=== PATIENT | female | born 1950 | race Caucasian/White ===

== ENCOUNTER 2019-12-24 19:31 | Inpatient (IN) | payer MEDICARE, BC ==
[~2019-12-24] VITALS: Ht 172.7 cm; Wt 125.4 kg
--- NOTE | 2019-12-24 19:15 | NUR ---
RECEIVED PATIENT IN BED, RECEIVED ENDORSEMENT FROM AM NURSE FOR ADMISSION OF PATIENT. PATIENT IN BED, ALERT AND VERBALLY RESPONSIVE. ON ROOM AIR. RESPIRATIONS EVEN AND UNLABORED. PATIENT WITH BILATERAL UPPER EXTREMITIES WRAPPED WITH MAX WRAP. PATIENT UNABLE TO MOVE BOTH ARMS BY SELF. WITH PAIN UPON MOVEMENT, BUT COMFORTABLE AT REST. ORIENTED PATIENT TO ROOM, BED, BED CONTROLS, AND HOSPITAL PROTOCOLS.
[~2019-12-24 19:31] MED LIST: ATOR10TA PO
[2019-12-24] MEDS ORDERED: Z GUARD REMEDY PASTE 57 GM TUBE TOP PRN (19:45)
[2019-12-24] MEDS ORDERED: ANAS1TAB50 PO (19:50)
[2019-12-24] MEDS ORDERED: ACET-2154 PO (19:50)
[2019-12-24] MEDS ORDERED: MAGN30OR PO (20:02)
[2019-12-24] MEDS ORDERED: HYDR1SYR4 IJ (20:02)
[2019-12-24] MEDS ORDERED: MAGN400O6 PO (20:02)
[2019-12-24] MEDS ORDERED: RIVA20TA PO (20:02)
[2019-12-24] MEDS ORDERED: HYDR-4384 PO ×2 (20:02)
[2019-12-24] MEDS ORDERED: ZOLP5TAB8 PO (20:02)
[2019-12-24] MEDS ORDERED: ZOLPIDEM 5 MG TABLET PO PRN (21:00)
[2019-12-24] MEDS ORDERED: MAG HYDROX/AL HYDROX/SIMETH 30 ML LIQUID UDC PO PRN (21:45)
--- NOTE | 2019-12-24 22:00 | NUR ---
DR MCARTHUR AND DR FELIPE NOTIFIED OF PATIENT'S ADMISSION. MEDICATION RECONCILIATION BY DR FELIPE
[2019-12-24 22:03] VITALS: BP 133/50
[2019-12-24] MEDS: HYDROCODONE/APAP 5-325MG TABLET PO PRN (22:58)
--- NOTE | 2019-12-24 23:00 | NUR ---
BODY CHECK DONE. CHANGED DRESSING FOR LEFT HIP SURGICAL SITE. NOTED WITH SCANT SEROSANGUINEOUS DRAINAGE. LEFT KNEE SURGICAL SITE WITH NO DRAINAGE. LEFT KNEE AND LEFT HIP SURGICAL SITES WITH COLTEN. PROVIDED PAD CALL BUTTON FOR PATIENT. Addendum: 12/25/19 at 0737 by MERLE MOE RN BODY CHECK DONE. CHANGED DRESSING FOR LEFT HIP SURGICAL SITE. NOTED WITH SCANT SEROSANGUINEOUS DRAINAGE. LEFT KNEE SURGICAL SITE WITH NO DRAINAGE. LEFT KNEE AND LEFT HIP SURGICAL SITES WITH COLTEN. UNABLE TO ASSESS BACK AND BUTTOCKS. PATIENT UNABLE TO TURN DUE TO BILATERAL ELBOW FRACTURE. PROVIDED PAD CALL BUTTON FOR PATIENT.
--- NOTE | 2019-12-25 04:45 | NUR ---
PATIENT IN BED, ASLEEP AT THIS TIME. EASILY AROUSED OR AWAKENED WITH CALLING OF NAME. PATIENT COMFORTABLE AT THIS TIME. WILL CONTINUE TO MONITOR PATIENT.
[2019-12-25 04:50] VITALS: BP 143/59
[2019-12-25 07:33] VITALS: BP 132/61
[2019-12-25 08:00] VITALS: BP 144/88
[2019-12-25] MEDS: ANASTROZOLE 1 MG TABLET PO SCH (08:49)
[2019-12-25 17:00] VITALS: BP 146/53
[2019-12-25] MEDS: ACETAMINOPHEN 325 MG TABLET PO PRN (17:13)
[2019-12-25] MEDS: RIVAROXABAN 10 MG TABLET PO SCH (17:15)
--- NOTE | 2019-12-25 18:16 | NUR ---
Pt received, assessed, no acute distress, pain , or SOB. VSS. Pt assisted to reposition both arms for comfort, wrapped with osito bandages intact. Pt compliant with routine medications and therapies as offered. Pt able to make needs known. Pt assisted to edge of bed, ambulate to the bathroom twice for voiding, and returned safely to bed. All comfort and safety needs implemented. Call light placed within reach. Will continue to monitor and endorse to juke box mechanic.
--- NOTE | 2019-12-25 20:00 | NUR ---
AWAKE,ALERTX3 WANTED BEDPAN,BILATERAL ARMS WITH MAX BANDAGE, FINGERS SLIGHTLY EDEMATOUS, SAFETY ASSOCIATE FED PATIENT HER DINNER.SLEP AT SHORT INTERVALS.
[2019-12-25] MEDS: HYDROCODONE/APAP 5-325MG TABLET PO PRN (23:39)
--- NOTE | 2019-12-25 23:55 | NUR ---
MEDICATED FOR BILATERAL ELBOW PAIN,NORCO 5MG GIVEN, MADE COMFORTABLE, RESTING COMFORTLY.
--- NOTE | 2019-12-26 05:50 | NUR ---
SLEPT AT LONG INTERVALS.CONDITION UNCHANGED
[2019-12-26 06:25] LABS: BASOPHILS % (AUTO) 0.6 % (0.0-2.0); EOSINOPHILS # (AUTO) 0.3 K/uL (0.0-0.7); EOSINOPHILS % (AUTO) 4.8 % (0.0-7.0); HEMATOCRIT 35.6 % (31.2-41.9); HEMOGLOBIN 11.8 g/dL (10.9-14.3); LYMPHOCYTES # (AUTO) 2.2 K/uL (20.0-40.0); LYMPHOCYTES % (AUTO) 36.2 % (20.5-51.5); MEAN CORPUSCULAR HEMOGLOBIN 29.4 uug (24.7-32.8); MEAN CORPUSCULAR HGB CONC 33 g/dL (32.3-35.6); MEAN CORPUSCULAR VOLUME 88.3 fL (75.5-95.3); MONOCYTES # (AUTO) 0.6 K/uL (2.0-10.0); MONOCYTES % (AUTO) 9.7 % (0.0-11.0); NEUTROPHILS # (AUTO) 2.9 K/uL (1.8-8.9); NEUTROPHILS % (AUTO) 48.7 % (38.5-71.5); PLATELET COUNT (AUTO) 207 K/uL (179-408); RED BLOOD CELL COUNT(AUTO) 4.03 MIL/uL (3.63-4.92)
[2019-12-26 06:37] LABS: CREATININE 0.8 mg/dL (0.6-1.3); MAGNESIUM 2.1 mg/dL (1.8-2.4); PHOSPHOROUS 3.9 mg/dL (2.5-4.9); POTASSIUM 3.8 mmol/L (3.5-5.1)
[2019-12-26 07:46] VITALS: BP 161/69
[2019-12-26] MEDS: ANASTROZOLE 1 MG TABLET PO SCH (09:33)
[2019-12-26] MEDS: HYDROCODONE/APAP 5-325MG TABLET PO PRN ×2 (12:54→17:46)
--- NOTE | 2019-12-26 13:11 | NUR ---
Fence Installer Helper Note: Pt states that she does not need any referrals but the SW provided patient with the following caregiving resources: [facility]; ([phone]), [facility]; ([phone]), [facility]; ([phone]) just in case she will need them. hops farmworker will continue to remain available to patient and provide ongoing supportive counseling and assess for any psychosocial needs. hops farmworker will encourage patient to comply with ARU goals of care.
--- NOTE | 2019-12-26 13:11 | NUR ---
Person to Notify Contact: SW called the pts friend listed on the facesheet, Angella ([phone] and [phone]), and was unable to make contact as the numbers were not accurate.
[2019-12-26 15:21] VITALS: BP 151/77
[2019-12-26] MEDS: ACETAMINOPHEN 325 MG TABLET PO PRN (15:50)
[2019-12-26] MEDS: RIVAROXABAN 10 MG TABLET PO SCH (17:48)
--- NOTE | 2019-12-26 19:21 | NUR ---
RN NOTES Patient resting in bed. Reports pain medication effective. Is comfortable with no immediate needs at this time. Ensured call light in position for patient to press if needed. Telephone within ear shot, however will need assistance to answer. Patient watching TV at this time. Per patient, would like to have a shower and have hair washed. Sp w/ charge nurse as patient states was told by PT she would not be showered on the floor. Will advise oncoming nurse that OT needs to be notified to assist patient with showering and hairwashing during/after tomorrow's session.
[2019-12-26] MEDS ORDERED: POLYVINYL ALCOHOL OPHT DROPS 15 ML BOTTLE EACHEYE PRN (21:00)
[2019-12-26 21:54] VITALS: BP 134/67
[2019-12-26] MEDS ORDERED: POLYVINYL ALCOHOL OPHT DROPS 15 ML BOTTLE ONE (22:08)
--- NOTE | 2019-12-27 05:53 | NUR ---
SLEPT AT LONG INTERVALS
[2019-12-27 07:30] VITALS: BP 135/68
[2019-12-27] MEDS: ANASTROZOLE 1 MG TABLET PO SCH (09:35)
[2019-12-27] MEDS: HYDROCODONE/APAP 5-325MG TABLET PO PRN ×2 (12:07→17:36)
[2019-12-27] MEDS: MAGNESIUM HYDROXIDE 30 ML LIQUID UDC PO PRN (14:46)
[2019-12-27 15:48] VITALS: BP 153/63
[2019-12-27] MEDS: RIVAROXABAN 10 MG TABLET PO SCH (17:35)
--- NOTE | 2019-12-27 18:11 | NUR ---
Patient continue therapy for increase strenght and endurance. Continue pain management prior to therapy. tolerated well. Change dressing for bulateral arm surgery. Cleanse and applied xeroform, cover with gauze, kerlix and osito bandage. Elevated arm with opillow while sitting and lying in bed.Patient continue assisting in feeding for S/P bilateral arm fractures. not in distress. Patient assisted from wheelchair to bathroom. not in distress. will continue monitor
--- NOTE | 2019-12-27 19:23 | NUR ---
INDIVIDUALIZED PLAN OF CARE
--- NOTE | 2019-12-27 20:42 | NUR ---
aaox4 Patient S/P bilateral elbow ORIF by Dr Lamar. Bilateral elbow clean dry and intact dressings. Needs attended. Denies any pain nor any discomfort. OOB to the BR with assist. Voiding well. Will monitor patient. Kept comfortable. No acute distress noted. VSS.
[2019-12-27 22:00] VITALS: BP 152/54
[2019-12-27] MEDS ORDERED: NALOXONE HCL 0.4 MG/ML AMPUL IV PRN (23:30)
[2019-12-28 04:00] VITALS: BP 147/73
--- NOTE | 2019-12-28 06:37 | NUR ---
End of shift notes: Slept well most of the shift. AAOx4 Needs attended. Bilateral elbow dressings clean dry and intact. Left ankle heplock flushed and patent. VSS. Continent of bladder and bowel. Will monitor patient. Needs attended. Fall precautions maintained. Siderails up for safety.
[2019-12-28 08:00] VITALS: BP 134/65
--- NOTE | 2019-12-28 09:00 | NUR ---
RECEIVED PATIENT ASLEEP IN BED, AROUSABLE BY NAME. ORIENTED X 4. VSS. NO S/S OF DISTRESS NOTED AT THIS TIME. B/L ELBOW DRESSING DRY AND INTACT. NO S/S OF BLEEDING. ABLE TO AMBULATE TO THE RESTROOM SBA - CONTINENT OF B/B. SAFETY PRECAUTIONS IN PLACE. WILL CONTINUE TO MONITOR.
[2019-12-28] MEDS: OXYCODONE HCL 10 MG TAB.SR.12H PO SCH ×3 (10:49→20:38)
[2019-12-28] MEDS: ANASTROZOLE 1 MG TABLET PO SCH (10:50)
[2019-12-28 16:11] VITALS: BP 132/60
[2019-12-28] MEDS: RIVAROXABAN 10 MG TABLET PO SCH (17:21)
--- NOTE | 2019-12-28 19:35 | NUR ---
Received patient awake on bed, with HOB elevated with continuos O2 at 2L via NC saturating 95% at this time. Bedpan provided for urine elimination at this time, voided well. Good skin/lyndon care provided. No complaint presented. Assured comfort at this time. BUE with Tahir wrap dressing dry and intact, elevated with pillow. Continue care as planned.
[2019-12-28 20:45] VITALS: BP 107/44
--- NOTE | 2019-12-28 21:05 | NUR ---
Patient refused Oxycontin due at this time claiming she has no pain. Requested back massage with lotion , provided with 2 people assist, expressed relief. Kept BUE elevated with pillow. Will monitor.
[2019-12-29 06:55] LABS: BASOPHILS % (AUTO) 0.7 % (0.0-2.0); EOSINOPHILS # (AUTO) 0.3 K/uL (0.0-0.7); EOSINOPHILS % (AUTO) 4.8 % (0.0-7.0); HEMATOCRIT 35.4 % (31.2-41.9); HEMOGLOBIN 11.8 g/dL (10.9-14.3); LYMPHOCYTES # (AUTO) 2.2 K/uL (20.0-40.0); LYMPHOCYTES % (AUTO) 37.3 % (20.5-51.5); MEAN CORPUSCULAR HEMOGLOBIN 29.3 uug (24.7-32.8); MEAN CORPUSCULAR HGB CONC 33 g/dL (32.3-35.6); MEAN CORPUSCULAR VOLUME 88.3 fL (75.5-95.3); MONOCYTES # (AUTO) 0.6 K/uL (2.0-10.0); MONOCYTES % (AUTO) 9.4 % (0.0-11.0); NEUTROPHILS # (AUTO) 2.8 K/uL (1.8-8.9); NEUTROPHILS % (AUTO) 47.8 % (38.5-71.5); PLATELET COUNT (AUTO) 237 K/uL (179-408); RED BLOOD CELL COUNT(AUTO) 4.01 MIL/uL (3.63-4.92); WHITE BLOOD COUNT (AUTO) 5.9 K/uL (3.8-11.8)
--- NOTE | 2019-12-29 07:02 | NUR ---
Shift End Report: Slept good. No complaint of pain the whole night. All needs attended and met. No significant event reported. Continue current rehab plan of care.
[2019-12-29 07:51] LABS: BILIRUBIN,TOTAL 0.3 mg/dL (0.2-1.0); CREATININE 0.9 mg/dL (0.6-1.3); MAGNESIUM 2.4 mg/dL (1.8-2.4); POTASSIUM 4.1 mmol/L (3.5-5.1); TOTAL PROTEIN, SERUM 6.3 g/dL (6.4-8.2)
[2019-12-29 08:00] VITALS: BP 133/42
[2019-12-29 08:12] LABS: THYROID STIMULATING HORMONE 2.392 mIU/mL (0.358-3.740)
[2019-12-29] MEDS: ANASTROZOLE 1 MG TABLET PO SCH (08:50)
[2019-12-29] MEDS: OXYCODONE HCL 10 MG TAB.SR.12H PO SCH ×2 (08:54→20:49)
[2019-12-29] MEDS: OMEGA-3 FATTY ACIDS/FISH OIL CAPSULE PO SCH (10:45)
[2019-12-29] MEDS: HYDROCODONE/APAP 5-325MG TABLET PO PRN (14:36)
[2019-12-29 16:00] VITALS: BP 107/53
[2019-12-29] MEDS: RIVAROXABAN 10 MG TABLET PO SCH (17:35)
--- NOTE | 2019-12-29 19:40 | NUR ---
Sleeping during initial rounds, fully tucked in in bed. No s/s of pain/discomforts noted. Both UE's elevated with pillows. Swelling noted on both hands. O2 at 1.5L via NC, saturating 94% at this time. HOB elevated. Safety measure and fall precaution maintained. Continue care as planned.
[2019-12-29 20:00] VITALS: BP 128/56
--- NOTE | 2019-12-29 22:16 | NUR ---
Good lyndon care and skin care rendered after bladder elimination. Back rub given with lotion, well tolerated and well appreciated. Turned and repositioned gently in bed.
[2019-12-30] MEDS: HYDROCODONE/APAP 5-325MG TABLET PO PRN ×2 (00:32→13:14)
[2019-12-30 05:17] VITALS: BP 142/65
--- NOTE | 2019-12-30 05:49 | NUR ---
Shift End Report: Slept light. Always complaint about every little noise. Quite needy and hard to please at times. All needs attended and met. Continue current rehab plan of care.
[2019-12-30 08:56] VITALS: BP 144/66
[2019-12-30] MEDS: OMEGA-3 FATTY ACIDS/FISH OIL CAPSULE PO SCH (09:14)
[2019-12-30] MEDS: OXYCODONE HCL 10 MG TAB.SR.12H PO SCH ×2 (09:15→20:12)
[2019-12-30] MEDS: ANASTROZOLE 1 MG TABLET PO SCH (09:16)
--- NOTE | 2019-12-30 10:45 | NUR ---
Received patient in room, patient is AAO x 4. No acute distress noted; able to express needs. Vital signs stable. Due morning meds administered as ordered and scheduled. Bilateral arms wrapped with osito bandage. Patient on PT/OT therapy. Pt. is BRP and 1 person assist for care. Safety measures in place, needs attended, call light left at bed side and will continue with care.
[2019-12-30 15:36] VITALS: BP 125/55
[2019-12-30] MEDS: RIVAROXABAN 10 MG TABLET PO SCH (16:50)
--- NOTE | 2019-12-30 18:57 | NUR ---
Patient placed back to bed and resting comfortably at this time. NO c/o pain. All due medications administered as ordered and tolerated well. Made comfortable throughout shift. Patient assisted with feeding, skin kept clean and dry. Needs attended, call light within easy reach and will continue with care.
--- NOTE | 2019-12-30 19:35 | NUR ---
Sleeping during initial rounds. No s/s of respiratory distress noted. O2 at 1.5L via NC, HOB elevated. Continue care as planned.
--- NOTE | 2019-12-30 20:06 | NUR ---
INTERDISCIPLINARY TEAM CONFERENCE
[2019-12-30 20:40] VITALS: BP 131/56
[2019-12-31 05:26] VITALS: BP 130/60
--- NOTE | 2019-12-31 06:42 | NUR ---
Shift End Report: Remain alert and oriented x 3. Able to make needs known, met and attended. Medicated once for bilateral elbow pain with relief. No further complaint presented. Bilateral UE dressing dry and intact and kept elevated with pillow. Saturating 96% on 1.5L O2 via NC, tolerating good and kept HOB elevated. NO significant event reported all night. Continue current rehab plan of care.
[2019-12-31 07:30] VITALS: BP 135/58
[2019-12-31] MEDS: OMEGA-3 FATTY ACIDS/FISH OIL CAPSULE PO SCH (08:32)
[2019-12-31] MEDS: OXYCODONE HCL 10 MG TAB.SR.12H PO SCH ×2 (08:33→20:19)
[2019-12-31] MEDS: ENSURE ENLIVE (VAN) 240 ML LIQUID PO SCH (08:34)
[2019-12-31] MEDS: ANASTROZOLE 1 MG TABLET PO SCH (08:35)
--- NOTE | 2019-12-31 10:45 | NUR ---
Patient is AAO x 4. No acute distress notes. NO new change of condition noted. All due medications administered as ordered and scheduled; tolerated well. On PT/OT therapy. Patient ambulatory with 1 person stand by assist. Skin kept clean and dry, needs attended and will continue with care.
[2019-12-31] MEDS: HYDROCODONE/APAP 5-325MG TABLET PO PRN (12:58)
[2019-12-31 15:43] VITALS: BP 124/46
[2019-12-31] MEDS: RIVAROXABAN 10 MG TABLET PO SCH (17:06)
--- NOTE | 2019-12-31 18:41 | NUR ---
Patient back in bed at this time, no acute distress noted; placed on O2 NC at 1lpm prn. Evening med administered and tolerated well. Patient BRP ans 1 person assist for care. Needs attended, upper and lower extremities elevated. call light left within easy reach and will continue with care.
--- NOTE | 2019-12-31 18:54 | NUR ---
IV line from left leg removed.
--- NOTE | 2019-12-31 19:39 | NUR ---
End of shift report given to pm nurse.
[2019-12-31 20:20] VITALS: BP 124/55
--- NOTE | 2019-12-31 20:44 | NUR ---
Received pt resting in bed and watching tv. AAO x4. On 1L O2 via NC, no acute distress noted. C/o 6/10 pain, scheduled pain med given as ordered. Assisted to bedpan, as per pt's request. Skin care rendered. Safety measures maintained. Call light and personal items within reach. Bed alarm on. Will continue to monitor.
[2020-01-01 06:09] VITALS: BP 124/54
[2020-01-01] MEDS: MAGNESIUM HYDROXIDE 30 ML LIQUID UDC PO PRN ×2 (06:39→20:14)
--- NOTE | 2020-01-01 07:57 | NUR ---
Patient sitting up on w/c at this time, AAO x 4, No acute distress noted. Will continue with care.
[2020-01-01 08:00] VITALS: BP 168/83
[2020-01-01] MEDS: OMEGA-3 FATTY ACIDS/FISH OIL CAPSULE PO SCH (08:59)
[2020-01-01] MEDS: OXYCODONE HCL 10 MG TAB.SR.12H PO SCH ×2 (09:00→20:14)
[2020-01-01] MEDS: ANASTROZOLE 1 MG TABLET PO SCH (09:01)
[2020-01-01] MEDS: ENSURE ENLIVE (VAN) 240 ML LIQUID PO SCH (09:06)
[2020-01-01] MEDS: HYDROCODONE/APAP 5-325MG TABLET PO PRN (12:48)
[2020-01-01 16:05] VITALS: BP 144/75
[2020-01-01] MEDS: RIVAROXABAN 10 MG TABLET PO SCH (17:09)
--- NOTE | 2020-01-01 18:30 | NUR ---
Patient in stable condition, no new change of condition noted. Vital signs stable. PRN pain medication of [place] 5/325mg po PRN q 4hrs administered before PT/OT and tolerated well. Upper bilateral arms still with dressing and osito-wrapped. Skin kept clean and dry. Needs attended, safety measures in place, call light left at bed side and will continue with care.
--- NOTE | 2020-01-01 19:30 | NUR ---
NSG: Received patient lying in bed. patient is awake alert and oriented x 4. No acute distress noted. Vital signs stable. Bilateral arms wrapped with osito bandage.Patient is BRP and 1 person assist for care. Safety measures in place, needs attended, call light left at bed side and will continue with care.
--- NOTE | 2020-01-01 20:12 | NUR ---
patient c/o constipation. mom 30 ml po given.
[2020-01-01 20:14] VITALS: BP 127/53
[2020-01-01] MEDS: CLOTRIMAZOLE/BETAMET DIPROP CREAM 15 GM TUBE TOP SCH (21:00)
--- NOTE | 2020-01-02 04:31 | NUR ---
NSG: Patient Remain calm and cooperative with meds and care. slept well. Resting comfortably at this time. NO c/o pain. All due medications administered as ordered and tolerated well. Kept comfortable throughout shift. Patient assisted with feeding, skin kept clean and dry. Needs attended, call light w/in reach. continue with care.
[2020-01-02 05:19] VITALS: BP 114/63
--- NOTE | 2020-01-02 07:10 | NUR ---
Handoff from night team RN. Isidoro Higginbotham RN
[2020-01-02] MEDS: ANASTROZOLE 1 MG TABLET PO SCH (08:52)
[2020-01-02 08:53] VITALS: BP 133/62
[2020-01-02] MEDS: OMEGA-3 FATTY ACIDS/FISH OIL CAPSULE PO SCH (08:53)
[2020-01-02] MEDS: OXYCODONE HCL 10 MG TAB.SR.12H PO SCH ×3 (08:53→22:24)
[2020-01-02] MEDS: ENSURE ENLIVE (VAN) 240 ML LIQUID PO SCH (09:05)
[2020-01-02] MEDS: CLOTRIMAZOLE/BETAMET DIPROP CREAM 15 GM TUBE TOP SCH ×2 (09:06→20:29)
[2020-01-02] MEDS: HYDROCODONE/APAP 5-325MG TABLET PO PRN ×2 (10:37→14:07)
--- NOTE | 2020-01-02 12:11 | NUR ---
Handoff with afternoon team RN, Isidoro Higginbotham RN
[2020-01-02] MEDS: ACETAMINOPHEN 325 MG TABLET PO PRN (13:45)
[2020-01-02 16:07] VITALS: BP 139/69
[2020-01-02] MEDS: RIVAROXABAN 10 MG TABLET PO SCH (16:55)
--- NOTE | 2020-01-02 19:35 | NUR ---
Sleeping with HOB elevated with continuous O2@ at 1.5L/min via NC saturating 97%. No s/s of respiratory distress noted. Awakened when name called. Denies any pain/discomforts. Safety measures and fall prevention maintained. Cooperative with care. Continue care as planned.
[2020-01-02 20:37] VITALS: BP 119/48
[2020-01-03 04:50] VITALS: BP 125/52
[2020-01-03] MEDS: OXYCODONE HCL 10 MG TAB.SR.12H PO SCH ×3 (05:13→22:14)
--- NOTE | 2020-01-03 05:30 | NUR ---
Shift End Report: Slept good. On routine Oxycontin every 8 hours now with help. Complaint that her mouth is always dry, requesting some sips of water frequently. All needs attended and met. Continue current rehab plan of care. Vs stable.
[2020-01-03 08:45] VITALS: BP 129/57
[2020-01-03] MEDS: ANASTROZOLE 1 MG TABLET PO SCH (09:09)
[2020-01-03] MEDS: CLOTRIMAZOLE/BETAMET DIPROP CREAM 15 GM TUBE TOP SCH ×2 (09:09→20:53)
[2020-01-03] MEDS: HYDROCODONE/APAP 10-325 MG TABLET PO PRN ×2 (09:10→18:06)
[2020-01-03] MEDS: OMEGA-3 FATTY ACIDS/FISH OIL CAPSULE PO SCH (09:10)
[2020-01-03] MEDS: ENSURE ENLIVE (VAN) 240 ML LIQUID PO SCH (09:10)
--- NOTE | 2020-01-03 09:15 | NUR ---
Original surgical dressings of bilateral elbows came off. Applied new dressings with xeroform, gauze and kerlix based on the original dressings.
--- NOTE | 2020-01-03 13:00 | NUR ---
Dressings came off again. Dr. Garcia made aware and stated to only apply surgical dressings to bilateral elbows
[2020-01-03 15:36] VITALS: BP 133/60
[2020-01-03] MEDS: RIVAROXABAN 10 MG TABLET PO SCH (17:00)
--- NOTE | 2020-01-03 18:33 | NUR ---
Patient stable throughout shift, AOx4, removed O2 @1L at this time, no SOB or distress. Wound dressings done on bilateral elbow incisions, no s/sx of infection. Pain management observed with relief. Bed locked in lowest position with siderails 2x up. Call light within reach. No other complaints at this time
--- NOTE | 2020-01-03 19:35 | NUR ---
Very happy to see patient up in a chair. Patient admitted that she's happy too that she's up longer today. Tolerable pain she said at this time but not needing pain medication. Both elbows dressings dry and intact. Safety measures and fall prevention maintained.
[2020-01-03 20:00] VITALS: BP 156/96
[2020-01-04 04:00] VITALS: BP 146/69
[2020-01-04] MEDS: OXYCODONE HCL 10 MG TAB.SR.12H PO SCH ×3 (05:42→21:05)
[2020-01-04 08:00] VITALS: BP 128/59
[2020-01-04] MEDS: HYDROCODONE/APAP 10-325 MG TABLET PO PRN ×2 (08:51→17:27)
[2020-01-04] MEDS: OMEGA-3 FATTY ACIDS/FISH OIL CAPSULE PO SCH (08:51)
[2020-01-04] MEDS: ANASTROZOLE 1 MG TABLET PO SCH (08:52)
[2020-01-04] MEDS: CLOTRIMAZOLE/BETAMET DIPROP CREAM 15 GM TUBE TOP SCH ×2 (08:53→21:05)
[2020-01-04] MEDS: ENSURE ENLIVE (VAN) 240 ML LIQUID PO SCH (08:53)
[2020-01-04 16:02] VITALS: BP 111/57
[2020-01-04] MEDS: RIVAROXABAN 10 MG TABLET PO SCH (17:12)
--- NOTE | 2020-01-04 18:00 | NUR ---
Pt stable throughout shift, in bed asleep. Able to slightly move BUE. Pain management and safety precautions in place. Will endorse to next shift patient's preferred schedule for pain medication. No other complaints at this time
[2020-01-04 20:20] VITALS: BP 117/58
--- NOTE | 2020-01-04 22:46 | NUR ---
Received pt resting in bed and watching tv. AAO x4. No acute distress noted. C/o pain, scheduled pain med and other due med given as ordered. Safety measures maintained. Call light and personal items within reach. Will continue to monitor.
[2020-01-05 05:13] VITALS: BP 139/68
[2020-01-05] MEDS: OXYCODONE HCL 10 MG TAB.SR.12H PO SCH ×3 (05:55→21:15)
[2020-01-05 07:32] VITALS: BP 134/61
[2020-01-05] MEDS: OMEGA-3 FATTY ACIDS/FISH OIL CAPSULE PO SCH (08:30)
[2020-01-05] MEDS: HYDROCODONE/APAP 10-325 MG TABLET PO PRN ×2 (08:31→15:39)
[2020-01-05] MEDS: ANASTROZOLE 1 MG TABLET PO SCH (08:33)
[2020-01-05] MEDS: ENSURE ENLIVE (VAN) 240 ML LIQUID PO SCH (08:36)
--- NOTE | 2020-01-05 10:00 | NUR ---
Patient is AAO x 4, sitting up on w/c at this time. No acute distress noted. Vital signs stable. Due morning meds administered as ordered and scheduled. [place] 10/325mg prn administered before PT/OT and tolerated well. Bilateral arms with surgical dressings on incision site and elevated. Patient with continuos PT/OT therapy as outlined. Skin kept clean and dry, safety measures in place, needs attended, call light left at bed side and will continue with care.
--- NOTE | 2020-01-05 15:42 | NUR ---
Patient requested for sundeep to be removed tomorrow morning after breakfast. Will continue with care.
[2020-01-05 15:54] VITALS: BP 146/73
[2020-01-05] MEDS: RIVAROXABAN 10 MG TABLET PO SCH (17:38)
[2020-01-05] MEDS: MAGNESIUM HYDROXIDE 30 ML LIQUID UDC PO PRN (19:00)
[2020-01-05 20:00] VITALS: BP 171/101
--- NOTE | 2020-01-05 22:00 | NUR ---
Received pt resting chair. Transferred back to bed. AAO x4. No acute distress noted. C/o pain, scheduled pain med administered as ordered. All needs attended to. Assisted with bedpan. Kept clean, dry, and comfortable. Safety measures maintained. Call light and personal items within reach. Will continue to monitor.
[2020-01-06] MEDS: HYDROCODONE/APAP 10-325 MG TABLET PO PRN ×4 (03:39→17:50)
[2020-01-06 04:30] VITALS: BP 144/62
[2020-01-06] MEDS: OXYCODONE HCL 10 MG TAB.SR.12H PO SCH ×3 (06:13→21:25)
--- NOTE | 2020-01-06 07:40 | NUR ---
Patient sleeping at this time, in no acute distress. VS stable. NO c/o pain at this time and will continue with care.
[2020-01-06 08:00] VITALS: BP 133/57
[2020-01-06] MEDS: ANASTROZOLE 1 MG TABLET PO SCH (08:43)
[2020-01-06] MEDS: OMEGA-3 FATTY ACIDS/FISH OIL CAPSULE PO SCH (08:44)
[2020-01-06] MEDS: MAGNESIUM HYDROXIDE 30 ML LIQUID UDC PO PRN (13:20)
--- NOTE | 2020-01-06 14:12 | NUR ---
Covid test done.
[2020-01-06] MEDS: ENSURE ENLIVE (VAN) 240 ML LIQUID PO SCH (14:21)
[2020-01-06 16:00] VITALS: BP 136/55
[2020-01-06] MEDS: RIVAROXABAN 10 MG TABLET PO SCH (17:49)
--- NOTE | 2020-01-06 18:00 | NUR ---
Sundeep removed from bilateral arms per Dr. hays. Incision site clean, dry, no s/sx of infection noted and intact; skin wnl. 23 sundeep removed from right arm and 25 sundeep removed from left arm; applied steri-strips and intact. Pictures taken and will continue with care.
--- NOTE | 2020-01-06 18:35 | NUR ---
Patient sitting up on w/c, no acute distress and watching TV. Due evening med administered; [place] 10/325mg 1 tab PRN administered per patient request. Needs attended, safety measures in place, call light left within easy reach and will continue with care.
--- NOTE | 2020-01-06 19:52 | NUR ---
End of shift report given to pm nurse.
--- NOTE | 2020-01-06 20:02 | NUR ---
INTERDISCIPLINARY TEAM CONFERENCE
[2020-01-06 20:21] VITALS: BP 151/90
--- NOTE | 2020-01-06 22:00 | NUR ---
Received pt sitting in chair. Transferred back to bed. AAO x4. No acute distress noted. C/o pain, scheduled pain med administered as ordered. All needs attended to. Kept clean, dry, and comfortable. Incision site clean and steri strips intact, no s/s of infection noted. Safety measures maintained. Call light and personal items within reach. Will continue to monitor through the night.
[2020-01-07] MEDS: HYDROCODONE/APAP 10-325 MG TABLET PO PRN ×3 (04:38→17:22)
[2020-01-07 04:53] VITALS: BP 122/50
[2020-01-07] MEDS: OXYCODONE HCL 10 MG TAB.SR.12H PO SCH ×3 (06:52→21:03)
[2020-01-07 08:00] VITALS: BP 137/61
[2020-01-07] MEDS: OMEGA-3 FATTY ACIDS/FISH OIL CAPSULE PO SCH (08:40)
[2020-01-07] MEDS: ANASTROZOLE 1 MG TABLET PO SCH (08:41)
[2020-01-07] MEDS: ENSURE ENLIVE (VAN) 240 ML LIQUID PO SCH (09:01)
--- NOTE | 2020-01-07 12:30 | NUR ---
Informed Dr. Lamar regarding abnormal result of x-ray of the left elbow and per MD he will do surgery for the left elbow on Thursday. Dr. Lamar spoke to the patient and explained x-ray result and the plan for surgery.
[2020-01-07 16:27] VITALS: BP 141/65
[2020-01-07] MEDS: RIVAROXABAN 10 MG TABLET PO SCH (17:04)
--- NOTE | 2020-01-07 18:09 | NUR ---
Offered MOM but patient refused and stated that she did have a BM 2 days ago. Explained risks and benefits but patient still refused. She only agreed on drinking prune juice and said will just wait for now, no medication at this time.
[2020-01-07 20:00] VITALS: BP 113/67
[2020-01-07] MEDS: MAGNESIUM HYDROXIDE 30 ML LIQUID UDC PO PRN (21:08)
--- NOTE | 2020-01-07 22:00 | NUR ---
Received pt lying bed. No acute distress noted. C/o pain, scheduled pain med administered as ordered. Administered PRN milk of Mag. All needs attended to. Kept clean, dry, and comfortable. Incision site clean and steri strips intact, no s/s of infection noted. Safety measures maintained. Call light and personal items within reach. Will continue to monitor through the night.
[2020-01-08 04:00] VITALS: BP 137/60
[2020-01-08] MEDS: OXYCODONE HCL 10 MG TAB.SR.12H PO SCH ×2 (05:14→13:33)
[2020-01-08 08:00] VITALS: BP 127/58
[2020-01-08] MEDS: ANASTROZOLE 1 MG TABLET PO SCH (08:30)
[2020-01-08] MEDS: OMEGA-3 FATTY ACIDS/FISH OIL CAPSULE PO SCH (08:31)
[2020-01-08] MEDS: ENSURE ENLIVE (VAN) 240 ML LIQUID PO SCH (08:32)
[2020-01-08] MEDS: HYDROCODONE/APAP 10-325 MG TABLET PO PRN (08:54)
--- NOTE | 2020-01-08 09:48 | NUR ---
Received call from DIANDRA velasco from [facility]. Diandra state that pt will be going back to [facility] per case managements arrangement.
--- NOTE | 2020-01-08 14:09 | NUR ---
Pt is d/c in ARU. PT is in no acute distress. [facility] floor[facility] revision with dr carpenter. Call light is within reach.
[2020-01-08] MEDS ORDERED: POLY15DR27 EACHEYE (15:49)
[2020-01-08] MEDS ORDERED: HYDR-4354 PO (15:49)
[2020-01-08] MEDS ORDERED: OXYC10TA49 PO (15:49)
[2020-01-08] MEDS ORDERED: OMEG1CAP PO (15:49)
[2020-01-08] MEDS ORDERED: LACT-246 PO (15:49)
[2020-01-08] MEDS ORDERED: ZINC113P3 TP (15:54)
[2020-01-11] MEDS ORDERED: ZOLP5TAB8 PO (11:32)
[2020-01-11] MEDS ORDERED: DOCU100C36 PO (11:32)
[2020-01-11] MEDS ORDERED: MENT71OI TOP (11:32)
== END 2020-01-08 14:17 | disposition short-term general hospital (02) | DRG 559 ==
PROVIDERS: ADMIT Physical Medicine & Rehabilitation Pain Medicine; ATTEND Physical Medicine & Rehabilitation Pain Medicine
DX: S52.021D Displaced fracture of olecranon process without intraarticular extension of right ulna, subsequent encounter for closed fracture with routine healing (principal); E43 Unspecified severe protein-calorie malnutrition; D68.59 Other primary thrombophilia; Z68.41 Body mass index [BMI] 40.0-44.9, adult; S52.032D Displaced fracture of olecranon process with intraarticular extension of left ulna, subsequent encounter for closed fracture with routine healing; S52.122D Displaced fracture of head of left radius, subsequent encounter for closed fracture with routine healing; Z86.711 Personal history of pulmonary embolism; M81.0 Age-related osteoporosis without current pathological fracture; Z85.3 Personal history of malignant neoplasm of breast; W19.XXXD Unspecified fall, subsequent encounter; E66.01 Morbid (severe) obesity due to excess calories; E78.5 Hyperlipidemia, unspecified; M19.90 Unspecified osteoarthritis, unspecified site; Z87.891 Personal history of nicotine dependence; K21.9 Gastro-esophageal reflux disease without esophagitis; Z88.0 Allergy status to penicillin
CPT/HCPCS: 36415; 71045; 73080; 83735; 84100; 84443; 85025; A4663

== ENCOUNTER 2020-01-08 15:34 | Inpatient (IN) | payer MEDICARE, BC ==
[~2020-01-08] VITALS: Ht 172.7 cm; Wt 125.2 kg
[~2020-01-08 15:34] MED LIST changes: +ACET-2154 PO; +ANAS1TAB50 PO; +HYDR-4384 PO; +HYDR1SYR4 IJ; +MAGN30OR PO; +MAGN400O6 PO; +RIVA20TA PO; +ZOLP5TAB8 PO
[2020-01-08] MEDS ORDERED: ONDANSETRON 4 MG/2 ML VIAL IV PRN (15:45)
[2020-01-08] MEDS ORDERED: HYDROCODONE/APAP 5-325MG TABLET PO PRN (15:45)
[2020-01-08] MEDS ORDERED: ACETAMINOPHEN 325 MG TABLET PO PRN (15:45)
[2020-01-08] MEDS ORDERED: MAGNESIUM HYDROXIDE 30 ML LIQUID UDC PO PRN (15:45)
[2020-01-08] MEDS ORDERED: ZOLPIDEM 5 MG TABLET PO PRN (15:45)
[2020-01-08] MEDS ORDERED: IV NS 1000 ML 1,000 ML IV ONE (15:45)
[2020-01-08] MEDS ORDERED: MORPHINE SULFATE 2 MG/1 ML DISP.SYRIN IV PRN (15:45)
[2020-01-08] MEDS ORDERED: Z GUARD REMEDY PASTE 57 GM TUBE TOP PRN (15:45)
[2020-01-08] MEDS ORDERED: POLY15DR27 EACHEYE (15:49)
[2020-01-08] MEDS ORDERED: OMEG1CAP PO (15:49)
[2020-01-08] MEDS ORDERED: HYDR-4354 PO (15:49)
[2020-01-08] MEDS ORDERED: OXYC10TA49 PO (15:49)
[2020-01-08] MEDS ORDERED: LACT-246 PO (15:49)
[2020-01-08] MEDS ORDERED: ZINC113P3 TP (15:54)
[2020-01-08] MEDS ORDERED: HYDROCODONE/APAP 10-325 MG TABLET PO SCH (16:00)
[2020-01-08] MEDS ORDERED: POLYVINYL ALCOHOL OPHT DROPS 15 ML BOTTLE EACHEYE PRN (16:00)
[2020-01-08] MEDS ORDERED: MAGNESIUM HYDROXIDE 30 ML LIQUID UDC PO SCH (16:00)
[2020-01-08] MEDS ORDERED: MAG HYDROX/AL HYDROX/SIMETH 30 ML LIQUID UDC PO SCH (17:00)
[2020-01-08] MEDS ORDERED: OXYCODONE HCL 5 MG TABLET PO SCH (17:00)
[2020-01-08] MEDS: OXYCODONE HCL 10 MG TAB.SR.12H PO SCH (17:49)
--- NOTE | 2020-01-08 18:13 | NUR ---
Awaiting for Midline insertion f/u called with nursing supervisor instrument repair. Pt is in no acute distress. Consent signed for surgery and blood transfusion. Picture taken of MARY elbow ORIF incisions with steri strips. Call light is within reach.
[2020-01-08 19:15] LABS: *BILIRUBIN,URIN NEGATIVE (NEGATIVE); *BLOOD, URINE 1+ (NEGATIVE); *CLARITY,URINE CLEAR (CLEAR); *COLOR,URINE YELLOW (YELLOW); *KETONES,URINE NEGATIVE (NEGATIVE); *UROBILINOGEN,URINE 0.2 E.U./dl (NORMAL); LEUKOCYTE ESTERASE ,URINE TRACE (NEGATIVE); NITRITE, URINE NEGATIVE (NEGATIVE); UGLUCOSE NEGATIVE (NEGATIVE)
--- NOTE | 2020-01-08 20:06 | NUR ---
Shawna Evans came and saw patient. Ordered additional labs. Air Brush Decorator was called in reference of follow up PICC line nurse in regards to Midline Insertion. Was told that Jolynn called and we are waiting for call back. Also asked nursery supervisor for schedule ORIF tomorrow (01/08), no time yet given. Will follow up.
[2020-01-08 20:44] VITALS: BP 152/83
[2020-01-08] MEDS: DOCUSATE SODIUM 100 MG CAPSULE PO SCH (20:55)
[2020-01-08] MEDS: HYDROCODONE/APAP 10-325 MG TABLET PO PRN (21:02)
[2020-01-08 23:08] LABS: BACTERIA,URINE NONE SEEN /HPF (NONE SEEN); SQUAMOUS EPITHELIAL CELL,UR FEW /HPF (NONE SEEN)
--- NOTE | 2020-01-09 | NUR ---
Plumbing Drafter noted that midline would be inserted in the morning
[2020-01-09] MEDS: OXYCODONE HCL 10 MG TAB.SR.12H PO SCH ×3 (01:20→17:00)
--- NOTE | 2020-01-09 02:00 | NUR ---
Patient had a IV inserted in her left foot, 20 gauge. ER nurse did the IV insertion. IV was assessed and it is patent and intact. Will continue to monitor.
[2020-01-09] MEDS: HYDROCODONE/APAP 10-325 MG TABLET PO PRN (03:00)
--- NOTE | 2020-01-09 03:18 | NUR ---
Assessed patient and no signs of distress or pain. Patient is resting comfortably. Afebrile. VSS. Call light within reach, bed at lowest position, HOB elevated, NC on at 2L. Will continue to assess and monitor.
[2020-01-09 04:31] LABS: BASOPHILS % (AUTO) 0.4 % (0.0-2.0); EOSINOPHILS # (AUTO) 0.2 K/uL (0.0-0.7); EOSINOPHILS % (AUTO) 3.4 % (0.0-7.0); HEMATOCRIT 33.5 % (31.2-41.9); HEMOGLOBIN 11.1 g/dL (10.9-14.3); LYMPHOCYTES # (AUTO) 2.1 K/uL (20.0-40.0); LYMPHOCYTES % (AUTO) 37.8 % (20.5-51.5); MEAN CORPUSCULAR HEMOGLOBIN 29.2 uug (24.7-32.8); MEAN CORPUSCULAR HGB CONC 33 g/dL (32.3-35.6); MEAN CORPUSCULAR VOLUME 87.8 fL (75.5-95.3); MONOCYTES # (AUTO) 0.5 K/uL (2.0-10.0); MONOCYTES % (AUTO) 9.9 % (0.0-11.0); NEUTROPHILS # (AUTO) 2.7 K/uL (1.8-8.9); NEUTROPHILS % (AUTO) 48.5 % (38.5-71.5); PLATELET COUNT (AUTO) 273 K/uL (179-408); RED BLOOD CELL COUNT(AUTO) 3.81 MIL/uL (3.63-4.92); WHITE BLOOD COUNT (AUTO) 5.5 K/uL (3.8-11.8)
[2020-01-09 04:36] LABS: BILIRUBIN,TOTAL 0.2 mg/dL (0.2-1.0); CREATININE 1.1 mg/dL (0.6-1.3); MAGNESIUM 2.2 mg/dL (1.8-2.4); PHOSPHOROUS 3.9 mg/dL (2.5-4.9); POTASSIUM 3.8 mmol/L (3.5-5.1); TOTAL PROTEIN, SERUM 6.3 g/dL (6.4-8.2)
[2020-01-09 05:25] VITALS: BP 127/52
--- NOTE | 2020-01-09 05:31 | NUR ---
Kept pt NPO through the night. IV patent and IV fluids infusing. VSS. No signs of distress or pain. Patient asleep. Call light within reach, bed at lowest position, O2 flowing at 2L via Nasal [place]ula. Will endorse to oncoming nurse.
[2020-01-09] MEDS ORDERED: POLYMYXIN B SULFATE 500,000 UNITS, BACITRACIN 50,000 UNITS, NORMAL SALINE 20 ML MC ONE ×3 (07:15)
--- NOTE | 2020-01-09 07:15 | NUR ---
RECEIVED PATIENT AWAKE IN BED. OR STAFF AT BEDSIDE TO RENT COLLECTOR PATIENT FOR SCHEDULED PROCEDURE.
[2020-01-09] MEDS ORDERED: MIDAZOLAM HCL 10 MG/2 ML VIAL ONE (07:36)
[2020-01-09] MEDS ORDERED: BUPIVACAINE/EPI PF 0.25% 30 ML VIAL ONE (07:36)
[2020-01-09] MEDS ORDERED: CLINDAMYCIN PHOSPHATE 600 MG/4 ML VIAL ONE (08:04)
[2020-01-09] MEDS ORDERED: VANCOMYCIN 1000 MG VIAL ONE (08:50)
[2020-01-09] MEDS: ENSURE ENLIVE (VAN) 240 ML LIQUID PO SCH (09:00)
[2020-01-09] MEDS: ANASTROZOLE 1 MG TABLET PO SCH ×3 (09:00→18:02)
[2020-01-09] MEDS: OMEGA-3 FATTY ACIDS/FISH OIL CAPSULE PO SCH ×3 (09:00→18:03)
[2020-01-09] MEDS ORDERED: FENTANYL CITRATE 100 MCG/2 ML AMPUL ONE ×2 (09:58→10:21)
--- NOTE | 2020-01-09 10:18 | NUR ---
SW received a elementary school social worker consultation this morning, reason for consultation is ORIF. MARGIE called and spoke with ore charger Rohoni, who stated that the consultation was entered in by error by the patient's nurse. Jo stated that the consultation will be cancelled. No need for SS intervention at this time.
[2020-01-09] MEDS ORDERED: IV D5W-0.45% NS +20 KCL 1,000 ML IV ONE (10:19)
[2020-01-09 11:24] VITALS: BP 150/70
[2020-01-09] MEDS: MORPHINE SULFATE 4 MG/1 ML DISP.SYRIN IV PRN ×4 (12:02→20:20)
--- NOTE | 2020-01-09 12:30 | NUR ---
PATIENT RETURNED FROM RECOVERY ROOM. ABLE TO FEEL SENSATION, AND MOVE LOWER EXTREMITIES. NOTED UPPER EXTREMITY WEAKNESS. LEFT ARM MINIMAL MOVEMENT, SLING IN PLACE. PATIENT AWAKE, ALERT AND ORIENTED X 4. IV ACCESS ON RIGHT FOOT, PATENT AND FREE OF INFILTRATES. DISCUSS PAIN MANAGEMENT PLAN WITH PATIENT. PAIN MEDICATION SIDE EFFECTS OF CONSTIPATION AND RESPIRATORY DEPRESSION OF DISCUSSED AND FOR PATIENT TO NOTIFY NURSE FOR ANY CHANGE OF CONDITION. ICE PACK IN PLACE ON LEFT ELBOW FOR PAIN MANAGEMENT. DENIES NAUSEA AT THIS TIME.
[2020-01-09] MEDS: IV D5W-0.45% NS +20 KCL 1,000 ML IV PRN (13:00)
[2020-01-09 15:55] VITALS: BP 120/51
--- NOTE | 2020-01-09 18:00 | NUR ---
Awaiting for Midline insertion f/u called with nursing right of way maintenance supervisor. Pt is in no acute distress. Consent signed for surgery and blood transfusion. Picture taken of MARY elbow ORIF incisions with steri strips. Call light is within reach. Addendum: 01/09/20 at 1812 by ATUL GREGORIO RN WRONG DATE
--- NOTE | 2020-01-09 19:30 | NUR ---
RECEIVED PT IN NO ACUTE DISTRESS. PT AWAKE ,ALERT AND ORIENTEDX4. PT IV INTACT. PT HAS 2L OXYGEN VIA NASAL CANNULA. PT ASKING FOR HER PAIN MEDICATION.SAFETY AND COMFORT PROVIDED. WILL CONTINUE TO MONITOR.
[2020-01-09] MEDS: DOCUSATE SODIUM 100 MG CAPSULE PO SCH (20:19)
[2020-01-09] MEDS: CLINDAMYCIN PHOSPHATE IV 900 MG in IV DEXTROSE 5% 100 ML IV SCH (20:19)
[2020-01-09 20:49] VITALS: BP 109/48
[2020-01-10] MEDS: OXYCODONE HCL 10 MG TAB.SR.12H PO SCH ×3 (01:00→16:39)
--- NOTE | 2020-01-10 01:50 | NUR ---
Pt refused Oxycontin 10mg. She wants to get Morphine 4mg for 9/10 pain scale instead.
[2020-01-10] MEDS: MORPHINE SULFATE 4 MG/1 ML DISP.SYRIN IV PRN ×2 (01:52→06:42)
[2020-01-10] MEDS: IV D5W-0.45% NS +20 KCL 1,000 ML IV PRN ×2 (01:58→21:01)
[2020-01-10 06:11] VITALS: BP 115/54
--- NOTE | 2020-01-10 06:26 | NUR ---
PT SLEPT INTERMITTENTLY. PT GIVEN MORPHINE PRN AT 2020H AND 0152H FOR LEFT ELBOW PAIN. AFTER ONE HOUR THAT BOTH MEDICATIONS GIVEN PT STATED IT RELIEVES HER. PT IV INTACT. PT EDUCATED TO USE THE INCENTIVE SPIROMETER. PT STABLE AND IN NO ACUTE DISTRESS. PRESCRIBED MEDICATION GIVEN AND PT TOLERATED IT WELL. SAFETY AND COMFORT PROVIDED.ALL NEEDS ARE MET. WILL ENDORSE TO INCOMING NURSE FOR CONTINUITY OF CARE.
--- NOTE | 2020-01-10 06:47 | NUR ---
0642H MORPHINE GIVEN TO PT PRN FOR 8/10 PAIN SCALE. PT TOLERATED IT WELL.
--- NOTE | 2020-01-10 07:46 | NUR ---
RECEIVED PATIENT IN BED WITH EYED CLOSED WITH O2 AT 2L/M BY NASAL CANULA WITH NO SOB AT THIS TIME S/P PAIN ADMINISTRATION AND PATIENT SEEMS TO BE COMFORTABLE AT THIS TIME IVF IN PROGRESS TO HER RIGHT FOOT ORDERED WITH NO S/S OF INFILTERATION AT THIS TIME LEFT ARM WITH SLING INTACT CIRCULATION IS ADEQUATE AT THIS TIME.CALL LIGHTS AND PERSONAL BELONGINGS ARE WITHIN EASY REACH WILL CONTINUE TO OBSERVE.
[2020-01-10] MEDS: CLINDAMYCIN PHOSPHATE IV 900 MG in IV DEXTROSE 5% 100 ML IV SCH ×2 (08:48→21:01)
[2020-01-10] MEDS: OMEGA-3 FATTY ACIDS/FISH OIL CAPSULE PO SCH (08:51)
[2020-01-10] MEDS: ENSURE ENLIVE (VAN) 240 ML LIQUID PO SCH (09:32)
--- NOTE | 2020-01-10 09:41 | NUR ---
PATIENT IS AWAKE ALERT AND ORIENTED ASSITED WITH BREAKFAST RIGHT HAND /ARM IS SWOLLEN AND PUFFY AND LEFT HAND AND ARM IS ALSO SWOLLEN AND PUFFY WITH DRESSING INTACT AND A SLING.CIRCULATION ON BOTH ARMS FINGERS ARE ADEQUATE.MEDICATIONS GIVEN ORDERED REMAIN ON ATB ORDERED WITH NO ADVERSE OR ALLERGIC REACTIONS AT THIS TIME SHE HAS 2 HEPLOCKS ON HER RIGHT FOOT PATENT WITH IVF INFUSSING THROUGH ONE OF THEM WILL CONTINUE TO OBSERVE.
--- NOTE | 2020-01-10 11:27 | NUR ---
PATIENT SEEN AND EXAMINED BY ANDREI RIBERA WITH NEW ORDERS AND NOTED.
--- NOTE | 2020-01-10 11:46 | NUR ---
WOUND CARE CONSULT: PT REFUSED TO TURN FOR FULL SKIN ASSESSMENT. LIMITED ASSESSMENT TODAY. PT PRESENTS WITH HEALED INCISION TO RT ARM. STERI STRIPS HAD FALLEN OFF. LEFT ARM ORTHO DRESSING (DRY AND INTACT) IN PLACE WITH SLING. PT IS AMBULATORY AND CONTINENT. WILL SEE PRN.
[2020-01-10 11:57] VITALS: BP 114/45
[2020-01-10] MEDS: HYDROCODONE/APAP 10-325 MG TABLET PO PRN ×2 (13:10→21:08)
[2020-01-10 16:00] VITALS: BP 119/44
--- NOTE | 2020-01-10 18:00 | NUR ---
RESTING RIGHT AND LEFT HAND/LOWER ARM REMAIN PUFFY AND SWOLLEN ELEVATED LEFT ARM SLING IS INTACT WITH ADEQUATE CIRCULATION IVF IN PROGRESS TO HER LEFT FOOT HEPLOCK WITH NO REDNESS AT THIS TIME.MADE COMFORTABLE WILL CONTINUE TO OBSERVE
--- NOTE | 2020-01-10 20:00 | NUR ---
Received patient awake, alert, and oriented. No s/s of acute distress noted at this time. Pt on 2L via NC and denies SOB. Right foot IVs patent and intact infusing ordered fluids. Bilateral feet elevated. Bed low and locked. Safety measures in place and will continue to monitor.
[2020-01-10 20:37] VITALS: BP 120/54
[2020-01-10] MEDS: DOCUSATE SODIUM 100 MG CAPSULE PO SCH (21:01)
[2020-01-11] MEDS: OXYCODONE HCL 10 MG TAB.SR.12H PO SCH ×3 (01:03→16:26)
[2020-01-11] MEDS: HYDROCODONE/APAP 10-325 MG TABLET PO PRN ×2 (05:19→13:17)
[2020-01-11 06:01] VITALS: BP 127/51
--- NOTE | 2020-01-11 06:15 | NUR ---
Patient slept throughout the night. Only woke up once requesting pain medication at 0519 and [place] was given. Patient on 3L/min NC. No s/s respiratory distress and does not report any SOB. IV right foot is patent and intact. Left arm is elevated with pillow. Surgical dressing still intact with sling. Bed is locked and in the lowest position. Bed alarm is on. Safety measures are in place and will be endorsed to on coming shift.
[2020-01-11 07:01] LABS: BASOPHILS % (AUTO) 0.4 % (0.0-2.0); EOSINOPHILS # (AUTO) 0.2 K/uL (0.0-0.7); EOSINOPHILS % (AUTO) 4.1 % (0.0-7.0); HEMATOCRIT 32.5 % (31.2-41.9); HEMOGLOBIN 10.7 g/dL (10.9-14.3); LYMPHOCYTES % (AUTO) 38.4 % (20.5-51.5); MEAN CORPUSCULAR HEMOGLOBIN 29.2 uug (24.7-32.8); MEAN CORPUSCULAR HGB CONC 33 g/dL (32.3-35.6); MEAN CORPUSCULAR VOLUME 88.4 fL (75.5-95.3); MONOCYTES # (AUTO) 0.6 K/uL (2.0-10.0); MONOCYTES % (AUTO) 11.6 % (0.0-11.0); NEUTROPHILS # (AUTO) 2.4 K/uL (1.8-8.9); NEUTROPHILS % (AUTO) 45.5 % (38.5-71.5); PLATELET COUNT (AUTO) 232 K/uL (179-408); RED BLOOD CELL COUNT(AUTO) 3.68 MIL/uL (3.63-4.92); WHITE BLOOD COUNT (AUTO) 5.3 K/uL (3.8-11.8)
[2020-01-11 07:10] LABS: MAGNESIUM 1.9 mg/dL (1.8-2.4); PHOSPHOROUS 3.7 mg/dL (2.5-4.9)
--- NOTE | 2020-01-11 07:15 | NUR ---
RECEIVED PATIENT IN BED AWAKE WITH O2 AT 2L/M BY NASAL CANULA , NO SOB AT THIS TIME IVF IN PROGRESS TO HER RIGHT FOOT ORDERED WITH NO S/S OF INFILTRATION LEFT ARM WITH SLING INTACT CIRCULATION IS ADEQUATE CALL LIGHTS AND PERSONAL BELONGINGS ARE WITHIN EASY REACH WILL CONTINUE TO OBSERVE.
[2020-01-11] MEDS: OMEGA-3 FATTY ACIDS/FISH OIL CAPSULE PO SCH (08:15)
[2020-01-11] MEDS: ANASTROZOLE 1 MG TABLET PO SCH (08:19)
[2020-01-11] MEDS: ENSURE ENLIVE (VAN) 240 ML LIQUID PO SCH (08:20)
--- NOTE | 2020-01-11 10:17 | NUR ---
pt is walking in the hallway with pt
[2020-01-11] MEDS ORDERED: ZOLP5TAB8 PO (11:32)
[2020-01-11] MEDS ORDERED: MENT71OI TOP (11:32)
[2020-01-11] MEDS ORDERED: DOCU100C36 PO (11:32)
[2020-01-11 11:45] VITALS: BP 157/78
[2020-01-11 16:21] VITALS: BP 124/76
--- NOTE | 2020-01-11 17:50 | NUR ---
dc orders received noted and carried out,dc heplock per md orders,dc instruction given to the pt,dc pt to aru via wheel chair iin stable condition
== END 2020-01-11 16:30 | DRG 507 ==
LOC: MEDSURG3 15:34
PROVIDERS: ADMIT Nurse Practitioner Acute Care; ATTEND Registered Nurse
PROC: 0RQM0ZZ Repair Left Elbow Joint, Open Approach (ICD-10-PCS; principal; 2020-01-09)
PROC: 0PBJ0ZZ Excision of Left Radius, Open Approach (ICD-10-PCS; 2020-01-09)
DX: S52.122A Displaced fracture of head of left radius, initial encounter for closed fracture (principal); E44.0 Moderate protein-calorie malnutrition; Z68.41 Body mass index [BMI] 40.0-44.9, adult; E78.5 Hyperlipidemia, unspecified; M19.90 Unspecified osteoarthritis, unspecified site; W19.XXXA Unspecified fall, initial encounter; Y93.9 Activity, unspecified; Y92.89 Other specified places as the place of occurrence of the external cause; E88.09 Other disorders of plasma-protein metabolism, not elsewhere classified; E66.9 Obesity, unspecified
CPT/HCPCS: 36415; 73090; 83735; 84100; 85025; 85730; 86850; 86900; 86901; 87086; 93005; A4649; G0378; J2250; J2270; J3010; J3370; J3490; J7030; J7060

== ENCOUNTER 2020-01-11 12:29 | Inpatient (IN) | payer MEDICARE, BC ==
[~2020-01-11] VITALS: Ht 172.7 cm; Wt 125.2 kg
[~2020-01-11 12:29] MED LIST changes: -ATOR10TA PO; +DOCU100C36 PO; +HYDR-4354 PO; -HYDR-4384 PO; -HYDR1SYR4 IJ; +LACT-246 PO; +MENT71OI TOP; +OMEG1CAP PO; +OXYC10TA49 PO; +POLY15DR27 EACHEYE; +ZINC113P3 TP
[2020-01-11] MEDS ORDERED: POLYVINYL ALCOHOL OPHT DROPS 15 ML BOTTLE EACHEYE PRN (18:30)
[2020-01-11] MEDS ORDERED: ACETAMINOPHEN 325 MG TABLET PO PRN (18:30)
[2020-01-11] MEDS ORDERED: ZOLPIDEM 5 MG TABLET PO PRN (18:30)
[2020-01-11] MEDS ORDERED: MAG HYDROX/AL HYDROX/SIMETH 30 ML LIQUID UDC PO PRN ×2 (18:30→19:00)
[2020-01-11] MEDS ORDERED: Z GUARD REMEDY PASTE 57 GM TUBE TOP PRN (18:30)
[2020-01-11] MEDS ORDERED: HYDROCODONE/APAP 10-325 MG TABLET PO PRN (18:30)
[2020-01-11 20:10] VITALS: BP 159/85
[2020-01-11] MEDS: DOCUSATE SODIUM 100 MG CAPSULE PO SCH (21:20)
[2020-01-11] MEDS: MAGNESIUM HYDROXIDE 30 ML LIQUID UDC PO PRN (21:23)
[2020-01-11] MEDS: HYDROCODONE/APAP 10-325 MG TABLET PO PRN (21:31)
[2020-01-11] MEDS ORDERED: Medication Not On Formulary EA (Oxycodone Hcl 1 TAB) PO SCH (22:00)
--- NOTE | 2020-01-11 22:00 | NUR ---
Patient transferred from Med Surg to ARU. Pt arrived to her room @6p. Received report from day nurse. admitting orders complete and doctors made aware of new admission Dx S/p resection arthroplasty left radial head. Patient is in no acute distress, no s/s SOB noted. Complains of pain 8/10 left arm and 6/10 right arm. Left arm is in a sling. Right incisions intact, dry, open to air. Pt axox4, able to make needs known. All due medication administered. Administered Bolton PRN per patient request, effective. All needs attended to, kept clean, dry and comfortable. Pt oriented to room, belongings list completed and placed in chart. Safety measure in place. all personal items and call light within pt reach.
[2020-01-12] MEDS: OXYCODONE HCL 10 MG TAB.SR.12H PO SCH ×4 (00:16→23:58)
[2020-01-12 04:30] VITALS: BP 127/59
[2020-01-12 07:30] VITALS: BP 139/58
[2020-01-12] MEDS: OMEGA-3 FATTY ACIDS/FISH OIL CAPSULE PO SCH (08:05)
[2020-01-12] MEDS: ENSURE ENLIVE (VAN) 240 ML LIQUID PO SCH (08:06)
[2020-01-12] MEDS: ANASTROZOLE 1 MG TABLET PO SCH (08:06)
[2020-01-12] MEDS: HYDROCODONE/APAP 10-325 MG TABLET PO PRN ×2 (12:21→20:11)
[2020-01-12 20:00] VITALS: BP 125/68
--- NOTE | 2020-01-12 20:00 | NUR ---
Patient sitting in chair, alert. Patient reported pain 6/10 in left arm. Denies any SOB or chest pain. Will continue to monitor throughout the night.
[2020-01-12] MEDS: DOCUSATE SODIUM 100 MG CAPSULE PO SCH (20:11)
--- NOTE | 2020-01-12 21:11 | NUR ---
Patient helped back into bed and given PRN Mant[place] for left arm pain /10 at 2010. Patient tolerated medication well. Pain reassessed at 2110 with level of 2/10 proving medication was effective. Will continue to monitor.
[2020-01-13 04:30] VITALS: BP 128/53
--- NOTE | 2020-01-13 06:22 | NUR ---
Patient resting in bed. Slept throughout the night with no complaints. Does not appear to have any respiratory distress or to be in any discomfort. Bed is locked and in the lowest position. Call light is within reach. Will endorse to oncoming nurse.
--- NOTE | 2020-01-13 07:10 | NUR ---
received un bed sleeping no c/o pain noted .vs are stable call light with in reach
[2020-01-13] MEDS: OMEGA-3 FATTY ACIDS/FISH OIL CAPSULE PO SCH (08:09)
[2020-01-13] MEDS: OXYCODONE HCL 10 MG TAB.SR.12H PO SCH ×2 (08:09→16:19)
[2020-01-13] MEDS: ANASTROZOLE 1 MG TABLET PO SCH (08:10)
[2020-01-13] MEDS: ENSURE ENLIVE (VAN) 240 ML LIQUID PO SCH (08:11)
[2020-01-13 10:05] VITALS: BP 151/67
[2020-01-13] MEDS: HYDROCODONE/APAP 10-325 MG TABLET PO PRN ×2 (13:09→21:25)
[2020-01-13 16:49] VITALS: BP 151/76
[2020-01-13] MEDS: DOCUSATE SODIUM 100 MG CAPSULE PO SCH (20:25)
--- NOTE | 2020-01-13 20:39 | NUR ---
INTERDISCIPLINARY TEAM CONFERENCE
[2020-01-13] MEDS ORDERED: CALCIUM CARBONATE 500 MG TAB.CHEW PO PRN (20:45)
[2020-01-13 21:47] VITALS: BP 158/88
--- NOTE | 2020-01-14 04:36 | NUR ---
Patient resting in bed. Slept throughout the night with no complaints. Does not appear to have any respiratory distress or to be in any discomfort. Call light is within reach.
[2020-01-14 05:32] VITALS: BP 132/56
[2020-01-14] MEDS: PANTOPRAZOLE SODIUM 40 MG TABLET.DR PO SCH (06:10)
--- NOTE | 2020-01-14 07:30 | NUR ---
REPORT RECEIVED FROM JERI RN. PATIENT ASLEEP AT THE TIME OF SHIFT EXCHANGE.
[2020-01-14 08:00] VITALS: BP 138/60
[2020-01-14] MEDS: OMEGA-3 FATTY ACIDS/FISH OIL CAPSULE PO SCH (08:46)
[2020-01-14] MEDS: HYDROCODONE/APAP 10-325 MG TABLET PO PRN ×5 (08:47→13:11)
[2020-01-14] MEDS: ENSURE ENLIVE (VAN) 240 ML LIQUID PO SCH (08:49)
[2020-01-14] MEDS: ANASTROZOLE 1 MG TABLET PO SCH (08:49)
[2020-01-14] MEDS: OXYCODONE HCL 10 MG TAB.SR.12H PO SCH ×3 (09:02→17:39)
--- NOTE | 2020-01-14 12:00 | NUR ---
PATIENT AWAKE, ALERT, ORIENTED X 4 PATIENT WATCHING TV AND WORKING ON HER LAP TOP PATIENT RATES PAIN AT 1/10 AT THIS TIME. PATIENT RECEIVED PRNS FOR PAIN AROUND THE CLOCK AND REPORTS GOOD RESULT BED IN LOWEST POSITION, SIDE RAILS UP X 4, CALL LIGHT WITHIN REACH. PATIENT KEPT DRY AND CLEAN. WE WILL CONTINUE TO MONITOR.
[2020-01-14 16:00] VITALS: BP 100/49
[2020-01-14] MEDS: DOCUSATE SODIUM 100 MG CAPSULE PO SCH (20:11)
--- NOTE | 2020-01-14 20:17 | NUR ---
INDIVIDUALIZED PLAN OF CARE
[2020-01-15] MEDS: OXYCODONE HCL 10 MG TAB.SR.12H PO SCH ×3 (00:12→17:20)
[2020-01-15 05:18] VITALS: BP 134/60
[2020-01-15] MEDS: PANTOPRAZOLE SODIUM 40 MG TABLET.DR PO SCH (05:57)
[2020-01-15 07:30] VITALS: BP 133/63
[2020-01-15] MEDS: OMEGA-3 FATTY ACIDS/FISH OIL CAPSULE PO SCH (08:12)
[2020-01-15] MEDS: ANASTROZOLE 1 MG TABLET PO SCH (08:16)
[2020-01-15] MEDS: ENSURE ENLIVE (VAN) 240 ML LIQUID PO SCH (08:21)
--- NOTE | 2020-01-15 10:15 | NUR ---
Patient AAO x 4, No respiratory distress noted. Vital signs stable for patient. Due medications administered. Patient with continuous PT/OT therapy. Left arm noted with dressing and osito wrap. On pain mgnt. Patient is ambulatory with 1 person assist and BRP. Needs attended, safety measures in place, call light at bed side and will continue with care.
[2020-01-15] MEDS: HYDROCODONE/APAP 10-325 MG TABLET PO PRN ×2 (13:44→21:20)
[2020-01-15 15:06] VITALS: BP 156/88
--- NOTE | 2020-01-15 18:55 | NUR ---
Patient resting comfortably at this time, VS stable for patient. Evening due meds administered. Skin kept clean and dry. Needs attended, call light left within easy reach and will continue with care.
[2020-01-15 20:00] VITALS: BP 174/90
--- NOTE | 2020-01-15 20:00 | NUR ---
Received patient sitting in their chair. AAOx4. No s/s of acute distress noted. Left arm elevated and dressing dry and intact. Pt is on RA and denies SOB. Call light in place. Safety measures in place and will continue to monitor.
[2020-01-15] MEDS: DOCUSATE SODIUM 100 MG CAPSULE PO SCH (20:35)
[2020-01-15 21:00] VITALS: BP 137/63
[2020-01-16] MEDS: OXYCODONE HCL 10 MG TAB.SR.12H PO SCH ×4 (00:04→23:45)
[2020-01-16 04:00] VITALS: BP 136/54
[2020-01-16] MEDS: PANTOPRAZOLE SODIUM 40 MG TABLET.DR PO SCH (06:07)
[2020-01-16 08:00] VITALS: BP 144/64
--- NOTE | 2020-01-16 08:15 | NUR ---
Assisted patient to bathroom and helped clean her up, no signs of bleeding from perianal area
[2020-01-16] MEDS: OMEGA-3 FATTY ACIDS/FISH OIL CAPSULE PO SCH (08:23)
[2020-01-16] MEDS: ENSURE ENLIVE (VAN) 240 ML LIQUID PO SCH (08:24)
[2020-01-16] MEDS: ANASTROZOLE 1 MG TABLET PO SCH (08:24)
--- NOTE | 2020-01-16 12:43 | NUR ---
Called Dr. Lamar's office regarding patient's original dressing from surgery on 01/09/2020. Surgeon will call back for orders
[2020-01-16] MEDS: HYDROCODONE/APAP 10-325 MG TABLET PO PRN ×2 (13:01→20:42)
--- NOTE | 2020-01-16 15:00 | NUR ---
Dr. Lamar called back and ordered for original dressing to be removed and just apply Mepilex. Took picture of incision, no s/s of infection. Picture placed in chart. Applied Mepilex as ordered
[2020-01-16 16:54] VITALS: BP 124/52
--- NOTE | 2020-01-16 19:30 | NUR ---
RECEIVED PT AWAKE, ALERT AND ORIENTEDX4. PT IN NO ACUTE DISTRESS. PT SITTING ON HER WHEELCHAIR .PT SAFETY AND COMFORT PROVIDED. WILL CONTINUE TO MONITOR.
[2020-01-16 20:29] VITALS: BP 141/77
[2020-01-16] MEDS: DOCUSATE SODIUM 100 MG CAPSULE PO SCH (20:41)
[2020-01-17 04:55] VITALS: BP 118/46
--- NOTE | 2020-01-17 06:18 | NUR ---
PT SLEPT INTERMITTENTLY. PT IN NO ACUTE DISTRESS. PRESCRIBED MEDICATION GIVEN AND PT TOLERATED IT WELL. NORCO GIVEN AT 2042H FOR PAIN. AFTER AND HOUR PT STATED SHE FELT BETTER. PT DRESSING DRY AND INTACT. SAFETY AND COMFORT PROVIDED. ALL NEEDS ARE MET. WILL ENDORSE TO INCOMING NURSE FOR CONTINUITY OF CARE.
[2020-01-17] MEDS: PANTOPRAZOLE SODIUM 40 MG TABLET.DR PO SCH (06:28)
[2020-01-17] MEDS: OMEGA-3 FATTY ACIDS/FISH OIL CAPSULE PO SCH (08:21)
[2020-01-17] MEDS: OXYCODONE HCL 10 MG TAB.SR.12H PO SCH ×2 (08:22→16:47)
[2020-01-17] MEDS: ANASTROZOLE 1 MG TABLET PO SCH (08:24)
[2020-01-17 09:50] VITALS: BP 129/51
--- NOTE | 2020-01-17 11:03 | NUR ---
Patient is AAO x 4, no acute distress. Vital signs stable. Left arm incision site covered with Mapilex and secured. Due medications administered as ordered and scheduled. On continuos PT/OT therapy. NO new change of conditions noted, needs attended and will continue with care.
[2020-01-17] MEDS: HYDROCODONE/APAP 10-325 MG TABLET PO PRN ×2 (12:37→20:34)
[2020-01-17] MEDS: ENSURE ENLIVE (VAN) 240 ML LIQUID PO SCH (12:40)
[2020-01-17 16:04] VITALS: BP 152/72
--- NOTE | 2020-01-17 19:40 | NUR ---
Patient seen by Dr. Ramirez with an order to place an osito bandage on left arm. All other need attended, endorsed to next shift and will continue with care.
[2020-01-17 20:10] VITALS: BP 142/77
[2020-01-17] MEDS: DOCUSATE SODIUM 100 MG CAPSULE PO SCH (20:33)
[2020-01-18] MEDS: OXYCODONE HCL 10 MG TAB.SR.12H PO SCH ×3 (00:12→16:49)
[2020-01-18 04:10] VITALS: BP 114/39
[2020-01-18] MEDS: PANTOPRAZOLE SODIUM 40 MG TABLET.DR PO SCH (06:36)
[2020-01-18 08:00] VITALS: BP 155/80
[2020-01-18] MEDS: OMEGA-3 FATTY ACIDS/FISH OIL CAPSULE PO SCH (09:02)
[2020-01-18] MEDS: ANASTROZOLE 1 MG TABLET PO SCH (09:07)
[2020-01-18] MEDS: ENSURE ENLIVE (VAN) 240 ML LIQUID PO SCH (09:08)
[2020-01-18] MEDS: HYDROCODONE/APAP 10-325 MG TABLET PO PRN ×2 (13:27→20:26)
[2020-01-18 16:20] VITALS: BP 147/48
--- NOTE | 2020-01-18 19:19 | NUR ---
refused to have drsg removed for weekly pics
[2020-01-18 20:20] VITALS: BP 105/63
[2020-01-18] MEDS: DOCUSATE SODIUM 100 MG CAPSULE PO SCH (20:26)
[2020-01-19] MEDS: OXYCODONE HCL 10 MG TAB.SR.12H PO SCH ×3 (00:40→16:23)
[2020-01-19 05:01] VITALS: BP 116/56
--- NOTE | 2020-01-19 05:14 | NUR ---
OOB in chair upon initial rounds. AAOx4 Needs attended. Assisted back to bed with moderate assist. Kept comfortable. All due meds given as ordered, Will monitor patient.
[2020-01-19] MEDS: PANTOPRAZOLE SODIUM 40 MG TABLET.DR PO SCH (06:26)
[2020-01-19] MEDS: OMEGA-3 FATTY ACIDS/FISH OIL CAPSULE PO SCH (08:18)
[2020-01-19] MEDS: ANASTROZOLE 1 MG TABLET PO SCH (08:20)
[2020-01-19] MEDS: ENSURE ENLIVE (VAN) 240 ML LIQUID PO SCH (08:22)
--- NOTE | 2020-01-19 16:16 | NUR ---
MD ESCOBAR NOTIFIED REGARDING HER REFUSAL TO PARTICIPATE IN THERAPY BECAUSE SHE SAYS SHE MAY HAVE A BLOOD CLOT. SPOKE WITH MD ESCOBAR HE SAYS HE WILL ORDER AND US. AND THAT SHE HAS NO RESTRICTIONS TO THERAPY.
[2020-01-19 20:00] VITALS: BP 144/72
[2020-01-19] MEDS: DOCUSATE SODIUM 100 MG CAPSULE PO SCH (21:19)
[2020-01-19] MEDS: HYDROCODONE/APAP 10-325 MG TABLET PO PRN (21:26)
--- NOTE | 2020-01-19 22:00 | NUR ---
Received patient sitting in their chair. AAOx4. No s/s of acute distress noted. Vitals WNL. Left arm elevated and dressing dry and intact. Tahir bandage removed. assisted pt back into bed. Administered NORCO PRN for pain 10/30. Pt is on RA and denies SOB. Call light in place. Safety measures in place and will continue to monitor.
[2020-01-20] MEDS: OXYCODONE HCL 10 MG TAB.SR.12H PO SCH ×3 (00:32→15:42)
[2020-01-20 04:44] VITALS: BP 122/53
[2020-01-20] MEDS: PANTOPRAZOLE SODIUM 40 MG TABLET.DR PO SCH (06:01)
[2020-01-20 08:00] VITALS: BP 128/51
[2020-01-20] MEDS: OMEGA-3 FATTY ACIDS/FISH OIL CAPSULE PO SCH (08:24)
[2020-01-20] MEDS: ANASTROZOLE 1 MG TABLET PO SCH (08:25)
[2020-01-20] MEDS: ENSURE ENLIVE (VAN) 240 ML LIQUID PO SCH (08:26)
[2020-01-20] MEDS: HYDROCODONE/APAP 10-325 MG TABLET PO PRN ×2 (13:02→21:46)
[2020-01-20 16:11] VITALS: BP 105/38
--- NOTE | 2020-01-20 19:00 | NUR ---
INTERDISCIPLINARY TEAM CONFERENCE
[2020-01-20 20:00] VITALS: BP 124/72
[2020-01-20] MEDS: DOCUSATE SODIUM 100 MG CAPSULE PO SCH (20:44)
[2020-01-20] MEDS: MAGNESIUM HYDROXIDE 30 ML LIQUID UDC PO PRN (20:44)
[2020-01-20] MEDS: SULFAMETH/TRIMETH 800/160 MG TABLET PO SCH (20:44)
--- NOTE | 2020-01-20 22:15 | NUR ---
Received patient sitting in their chair. No s/s of acute distress noted. Vitals WNL. Complaint of sore arm and requested pain medication. Administered Smoot PRN. Left arm elevated and dressing dry and intact. Assisted pt back into bed. all needs attended to promptly, kept comfortable. Call light in place and all personal items within pt reach. Safety measures in place and will continue to monitor.
--- NOTE | 2020-01-21 | NUR ---
No new changes. Vitals WNL. Left arm elevated and dressing dry and intact. All due medication administered. Pt. c/o moderate discomfort in left arm, administered Tylenol PRN, effective. Safety measure maintained. All needs attended to promptly. Call light in place. Will continue to monitor. Addendum: 01/22/20 at 0156 by TRUDY CHILDS RN RN wrong time 01/22/20 @0000
[2020-01-21] MEDS: OXYCODONE HCL 10 MG TAB.SR.12H PO SCH ×4 (00:09→23:41)
[2020-01-21 04:00] VITALS: BP 127/52
[2020-01-21] MEDS: PANTOPRAZOLE SODIUM 40 MG TABLET.DR PO SCH (06:24)
[2020-01-21 08:00] VITALS: BP 131/58
[2020-01-21] MEDS: SULFAMETH/TRIMETH 800/160 MG TABLET PO SCH ×2 (08:24→20:31)
[2020-01-21] MEDS: OMEGA-3 FATTY ACIDS/FISH OIL CAPSULE PO SCH (08:24)
[2020-01-21] MEDS: ENSURE ENLIVE (VAN) 240 ML LIQUID PO SCH (08:26)
[2020-01-21] MEDS: ANASTROZOLE 1 MG TABLET PO SCH (08:31)
--- NOTE | 2020-01-21 09:32 | NUR ---
Follow up with patient prior to physical therapy today regarding pain medication needs. Patient says she will be ok for now without further medication prior to therapy appointment. Isidoro Higginbotham RN
[2020-01-21] MEDS: HYDROCODONE/APAP 10-325 MG TABLET PO PRN (11:34)
[2020-01-21 14:41] VITALS: BP 107/47
--- NOTE | 2020-01-21 19:16 | NUR ---
HANDOFF WITH HAILEE YATES. RADHA HIDALGO RN
[2020-01-21] MEDS: DOCUSATE SODIUM 100 MG CAPSULE PO SCH (20:30)
[2020-01-21 20:31] VITALS: BP 143/64
[2020-01-22 04:40] VITALS: BP 116/41
[2020-01-22] MEDS: PANTOPRAZOLE SODIUM 40 MG TABLET.DR PO SCH (06:15)
--- NOTE | 2020-01-22 07:45 | NUR ---
Received patient awake in bed. Patient AO x 4. In no apparent distress at the moment. No pain verbalized. Safety precautions in place. Call light within reach. Will continue to monitor.
[2020-01-22 08:00] VITALS: BP 148/80
[2020-01-22] MEDS: ENSURE ENLIVE (VAN) 240 ML LIQUID PO SCH (09:00)
[2020-01-22] MEDS: SULFAMETH/TRIMETH 800/160 MG TABLET PO SCH ×2 (09:03→20:42)
[2020-01-22] MEDS: OMEGA-3 FATTY ACIDS/FISH OIL CAPSULE PO SCH (09:04)
[2020-01-22] MEDS: OXYCODONE HCL 10 MG TAB.SR.12H PO SCH ×3 (09:04→23:51)
[2020-01-22] MEDS: ANASTROZOLE 1 MG TABLET PO SCH (09:05)
[2020-01-22] MEDS: HYDROCODONE/APAP 10-325 MG TABLET PO PRN ×2 (13:13→20:48)
--- NOTE | 2020-01-22 15:38 | NUR ---
Called Dr. Henderson to report patient has new redness and swelling on left leg that is warm to touch. Per MD, order ultrasound of the left leg.
[2020-01-22 16:00] VITALS: BP 157/71
--- NOTE | 2020-01-22 18:38 | NUR ---
Patient stable throughout shift. Pain managed with pain medication. Tolerate PT/OT. New redness of leg that presented during shift was notified to Dr. Lan. U/S of lower left extremity conducted. Wound care on left elbow rendered.
--- NOTE | 2020-01-22 20:01 | NUR ---
Patient up in a chair.ALOx4.On RA.No apparent distress noted at this time.c/o pain on left arm.Medicated with PRN medication with relief.Left elbow with dressing intact,clean an dry.All due meds given .No a/R noted.Call light and all belongings are with in reach.
[2020-01-22] MEDS: DOCUSATE SODIUM 100 MG CAPSULE PO SCH (20:42)
[2020-01-22 20:54] VITALS: BP 144/77
[2020-01-23 04:40] VITALS: BP 124/43
[2020-01-23] MEDS: PANTOPRAZOLE SODIUM 40 MG TABLET.DR PO SCH (06:11)
[2020-01-23 08:29] VITALS: BP 138/65
[2020-01-23] MEDS: OMEGA-3 FATTY ACIDS/FISH OIL CAPSULE PO SCH (08:32)
[2020-01-23] MEDS: SULFAMETH/TRIMETH 800/160 MG TABLET PO SCH ×2 (08:32→20:45)
[2020-01-23] MEDS: ANASTROZOLE 1 MG TABLET PO SCH (08:33)
[2020-01-23] MEDS: OXYCODONE HCL 10 MG TAB.SR.12H PO SCH ×3 (08:43→23:45)
[2020-01-23] MEDS: ENSURE ENLIVE (VAN) 240 ML LIQUID PO SCH (08:44)
--- NOTE | 2020-01-23 12:00 | NUR ---
Patient seen and examined by Dr. Henderson, radha FAUSTIN regarding patients concern of resuming her home medication Xarelto. See order history for orders.
[2020-01-23 12:32] LABS: CREATININE 1.3 mg/dL (0.6-1.3); POTASSIUM 4.3 mmol/L (3.5-5.1)
[2020-01-23] MEDS: HYDROCODONE/APAP 10-325 MG TABLET PO PRN ×2 (12:32→18:43)
[2020-01-23 15:54] VITALS: BP 120/48
[2020-01-23] MEDS: RIVAROXABAN 10 MG TABLET PO SCH (17:34)
--- NOTE | 2020-01-23 18:30 | NUR ---
Received a call from Dr. Henderson with order to apply warm compress on left postero-medial knee forming abscess.
[2020-01-23 18:39] LABS: *BILIRUBIN,URIN NEGATIVE (NEGATIVE); *CLARITY,URINE CLEAR (CLEAR); *COLOR,URINE YELLOW (YELLOW); *KETONES,URINE NEGATIVE (NEGATIVE); LEUKOCYTE ESTERASE ,URINE NEGATIVE (NEGATIVE); NITRITE, URINE NEGATIVE (NEGATIVE); UGLUCOSE NEGATIVE (NEGATIVE)
[2020-01-23 18:44] LABS: *CREATININE,URINE 84.4 mg/dL (30-125); *URINE TOTAL PROTEIN RANDOM < 6.0 mg/dL (<150/24HR)
[2020-01-23 18:45] LABS: *BLOOD, URINE TRACE LYSED (NEGATIVE)
[2020-01-23 20:45] VITALS: BP 137/66
[2020-01-23] MEDS: DOCUSATE SODIUM 100 MG CAPSULE PO SCH (20:45)
--- NOTE | 2020-01-23 22:00 | NUR ---
Patient alert and verbally responsive.No s/s of distress noted at this time.Compliant with medications and care.Applied warm compress on left medial knee forming abscess.Patient tolerated well.Call light with in reach.Will continue to monitor.
[2020-01-24 03:19] LABS: BACTERIA,URINE FEW /HPF (NONE SEEN); RBC,URINE 0-3 /HPF (0-3); SQUAMOUS EPITHELIAL CELL,UR FEW /HPF (NONE SEEN); WBC,URINE 0-3 /HPF (0-3)
[2020-01-24 04:13] VITALS: BP 130/57
[2020-01-24] MEDS: PANTOPRAZOLE SODIUM 40 MG TABLET.DR PO SCH (06:05)
[2020-01-24 06:37] LABS: BASOPHILS % (AUTO) 0.5 % (0.0-2.0); EOSINOPHILS # (AUTO) 0.3 K/uL (0.0-0.7); EOSINOPHILS % (AUTO) 4.9 % (0.0-7.0); HEMATOCRIT 33.5 % (31.2-41.9); HEMOGLOBIN 11.1 g/dL (10.9-14.3); LYMPHOCYTES # (AUTO) 2.3 K/uL (20.0-40.0); LYMPHOCYTES % (AUTO) 40.8 % (20.5-51.5); MEAN CORPUSCULAR HGB CONC 33 g/dL (32.3-35.6); MEAN CORPUSCULAR VOLUME 87.6 fL (75.5-95.3); MONOCYTES # (AUTO) 0.6 K/uL (2.0-10.0); NEUTROPHILS # (AUTO) 2.4 K/uL (1.8-8.9); NEUTROPHILS % (AUTO) 43.8 % (38.5-71.5); PLATELET COUNT (AUTO) 187 K/uL (179-408); RED BLOOD CELL COUNT(AUTO) 3.83 MIL/uL (3.63-4.92); WHITE BLOOD COUNT (AUTO) 5.6 K/uL (3.8-11.8)
[2020-01-24 06:40] LABS: BILIRUBIN,TOTAL 0.2 mg/dL (0.2-1.0); CREATININE 1.1 mg/dL (0.6-1.3); MAGNESIUM 2.1 mg/dL (1.8-2.4); PHOSPHOROUS 4.5 mg/dL (2.5-4.9); POTASSIUM 4.2 mmol/L (3.5-5.1); TOTAL PROTEIN, SERUM 6.5 g/dL (6.4-8.2)
[2020-01-24] MEDS: SULFAMETH/TRIMETH 800/160 MG TABLET PO SCH ×2 (08:26→20:27)
[2020-01-24] MEDS: OMEGA-3 FATTY ACIDS/FISH OIL CAPSULE PO SCH (08:26)
[2020-01-24] MEDS: OXYCODONE HCL 10 MG TAB.SR.12H PO SCH ×3 (08:26→23:51)
[2020-01-24] MEDS: ANASTROZOLE 1 MG TABLET PO SCH (08:27)
[2020-01-24] MEDS: ENSURE ENLIVE (VAN) 240 ML LIQUID PO SCH (08:28)
[2020-01-24 09:48] VITALS: BP 141/76
--- NOTE | 2020-01-24 12:59 | NUR ---
Patient remains alert, oriented x 4, not in any form of distress, on room air. No complain of any pain or discomfort at this time. Compliant with medications. Needs attended to promptly. Will continue to monitor.
[2020-01-24] MEDS: HYDROCODONE/APAP 10-325 MG TABLET PO PRN ×2 (13:49→20:27)
[2020-01-24 15:59] VITALS: BP 141/77
[2020-01-24] MEDS: RIVAROXABAN 10 MG TABLET PO SCH (17:05)
[2020-01-24 20:10] VITALS: BP 135/81
[2020-01-24] MEDS: DOCUSATE SODIUM 100 MG CAPSULE PO SCH (20:26)
--- NOTE | 2020-01-24 21:42 | NUR ---
Received pt sitting in the wheelchair at bedside. AAO x4. No acute distress noted. C/o moderate pain on left arm/ elbow. PRN pain med and other due meds given as ordered. Assisted back to bed safely. Wound pictures taken, dressing changed. Safety measures maintained. Call light and personal items within reach. Will continue to monitor.
[2020-01-25 04:10] VITALS: BP 123/43
[2020-01-25] MEDS: PANTOPRAZOLE SODIUM 40 MG TABLET.DR PO SCH (06:00)
[2020-01-25 08:00] VITALS: BP 169/79
[2020-01-25] MEDS: OXYCODONE HCL 10 MG TAB.SR.12H PO SCH ×2 (08:12→16:00)
[2020-01-25] MEDS: SULFAMETH/TRIMETH 800/160 MG TABLET PO SCH (08:12)
[2020-01-25] MEDS: ENSURE ENLIVE (VAN) 240 ML LIQUID PO SCH (08:12)
[2020-01-25] MEDS: OMEGA-3 FATTY ACIDS/FISH OIL CAPSULE PO SCH (08:12)
[2020-01-25] MEDS: ANASTROZOLE 1 MG TABLET PO SCH (08:15)
[2020-01-25] MEDS: HYDROCODONE/APAP 10-325 MG TABLET PO PRN (12:28)
--- NOTE | 2020-01-25 12:30 | NUR ---
patient left calf lesion discussed with BACILIO hernandez, spoke to patient as well, to continue to monitor, patient teaching provided to monitor herself if it gets more redder or bigger, if develops fever, follow up with outpatient clinic with dr stevens, patient is given information about dr angela office, report will be given the nursing staff of [facility] to continue to monitor and follow up as needed. patient verbalized understanding of it
--- NOTE | 2020-01-25 14:26 | NUR ---
REPORT GIVEN TO LAYA FROM [facility]
[2020-01-25 15:00] VITALS: BP 139/65
--- NOTE | 2020-01-25 16:29 | NUR ---
patient discharged nursing facility [facility], alert, oriented x4, verbally responsive, no sob, resp even nonlabored, skin warm and dry to touch, ambulatory, needs one person assist with adls, status post surgery of bilateral elbow fracture and left ulnar fracture, belongings are accounted and signed, discharge instructions given to patient as well, patient stated understanding of it, picked up by [facility]. no IV access on patient.
== END 2020-01-25 16:30 | DRG 559 ==
PROVIDERS: ADMIT Physical Medicine & Rehabilitation Pain Medicine; ATTEND Physical Medicine & Rehabilitation Pain Medicine
DX: S52.122D Displaced fracture of head of left radius, subsequent encounter for closed fracture with routine healing (principal); N17.0 Acute kidney failure with tubular necrosis; E44.0 Moderate protein-calorie malnutrition; Z68.41 Body mass index [BMI] 40.0-44.9, adult; S52.021D Displaced fracture of olecranon process without intraarticular extension of right ulna, subsequent encounter for closed fracture with routine healing; S52.032D Displaced fracture of olecranon process with intraarticular extension of left ulna, subsequent encounter for closed fracture with routine healing; W19.XXXD Unspecified fall, subsequent encounter; R53.1 Weakness; E66.9 Obesity, unspecified; E78.5 Hyperlipidemia, unspecified; M19.90 Unspecified osteoarthritis, unspecified site; K64.9 Unspecified hemorrhoids; M81.0 Age-related osteoporosis without current pathological fracture; N13.9 Obstructive and reflux uropathy, unspecified; Z88.0 Allergy status to penicillin; T36.8X5A Adverse effect of other systemic antibiotics, initial encounter; Y92.230 Patient room in hospital as the place of occurrence of the external cause
CPT/HCPCS: 36415; 73080; 76881; 83735; 84100; 84156; 84300; 85025; U0003

== ENCOUNTER 2020-04-30 09:30 | Day surgery (SDC) | payer MEDICARE, BC ==
[~2020-04-30 09:30] MED LIST changes: -RIVA20TA PO
[2020-04-30] MEDS ORDERED: EPHEDRINE SULFATE 50 MG/ML AMPUL IM ONE (09:31)
[2020-04-30] MEDS ORDERED: LIDOCAINE-MPF 2% 5 ML VIAL IJ ONE (09:31)
[2020-04-30] MEDS ORDERED: KETOROLAC TROMETHAMINE 30 MG INJ IM ONE (09:31)
[2020-04-30] MEDS ORDERED: PROPOFOL 200 MG/20 ML BOTTLE IV ONE (09:31)
[2020-04-30] MEDS ORDERED: PHENYLEPHRINE 10 MG/1 ML VIAL IV ONE (09:31)
[2020-04-30] MEDS ORDERED: ONDANSETRON 4 MG/2 ML VIAL IV ONE (09:31)
[2020-04-30] MEDS ORDERED: DEXAMETHASONE SOD PHOSPHATE 4 MG INJ IV ONE (09:31)
[2020-04-30] MEDS ORDERED: POLYMYXIN B SULFATE 500,000 UNITS, BACITRACIN 50,000 UNITS, NORMAL SALINE 20 ML MC ONE ×3 (11:00)
[2020-04-30] MEDS ORDERED: FENTANYL CITRATE 100 MCG/2 ML AMPUL ONE ×2 (12:07→13:24)
[2020-04-30] MEDS ORDERED: ROCURONIUM BROMIDE 50 MG/5 ML VIAL ONE (12:07)
[2020-04-30] MEDS ORDERED: CLINDAMYCIN PHOSPHATE 600 MG/4 ML VIAL ONE (12:25)
[2020-04-30] MEDS ORDERED: HYDROCODONE/APAP 10-325 MG TABLET ONE (14:28)
== END 2020-04-30 15:30 ==
LOC: DS 09:30
PROVIDERS: ATTEND Orthopaedic Surgery Sports Medicine
DX: S52.122A Displaced fracture of head of left radius, initial encounter for closed fracture (principal); M24.622 Ankylosis, left elbow; M24.621 Ankylosis, right elbow; M19.90 Unspecified osteoarthritis, unspecified site; Z85.3 Personal history of malignant neoplasm of breast; Z87.440 Personal history of urinary (tract) infections; Z79.899 Other long term (current) drug therapy; Z98.890 Other specified postprocedural states; Z87.891 Personal history of nicotine dependence; Z88.0 Allergy status to penicillin; X58.XXXA Exposure to other specified factors, initial encounter; Y93.89 Activity, other specified; Y92.89 Other specified places as the place of occurrence of the external cause; Y99.9 Unspecified external cause status
CPT/HCPCS: 24300; 26340 ×4; 73070; J1100; J1885; J2370; J2405; J3010 ×2; J3490 ×4; A4649; J7030